=== PATIENT | male | born 2000 | race Two or more races ===

== ENCOUNTER 2023-04-08 06:11 | Emergency (ER) | payer BC ==
[~2023-04-08] VITALS: Ht 172.7 cm; Wt 90.7 kg
[2023-04-08 06:25] VITALS: TEMP 98
[2023-04-08 07:11] VITALS: BP 135/78; O2SAT 100
== END 2023-04-08 07:18 | disposition home or self-care (01) ==
LOC: ER 06:20
DX: R07.9 Chest pain, unspecified (principal)
CPT/HCPCS: 71045-TC